=== PATIENT | female | born 1980 | race Caucasian/White ===

== ENCOUNTER 2022-07-01 08:30 | Inpatient (IN) | payer BC, OTHER ==
[2022-07-01] MEDS: ELECTROLYTE-148 SOLN 1,000 ML IV SCH (08:45)
[2022-07-01] MEDS ORDERED: CITRIC ACID/SODIUM CITRATE 30 ML UNIT-DOSE CUP PO ONE (09:22)
[2022-07-01 09:33] VITALS: BMI 32.9
[2022-07-01 09:35] LABS: BASO % 0.5 % (0-2.0); EOS % 1.8 % (0-4.5); HEMATOCRIT 38.7 % (32.4-45.2); HEMOGLOBIN 13.5 GM/dL (10.7-15.3); LYMPH % 17.5 % (8-40); MCH 31.4 pg (25.7-33.7); MCHC 34.9 g/dl (32.0-36.0); MEAN PLT VOLUME 9.2 fl (7.5-11.1); NEUT % 72.2 % (42.8-82.8); PLATELET COUNT 115 10^3/uL (134-434); WHITE BLOOD COUNT 7.2 K/mm3 (4.0-10.0)
[2022-07-01 09:50] LABS: POTASSIUM 3.7 mmol/L (3.5-5.1)
[2022-07-01 09:52] LABS: BLOOD UREA NITROGEN 7.8 mg/dL (7-18); CALCIUM 8.2 mg/dL (8.5-10.1)
[2022-07-01 09:53] LABS: ACTIVATED PTT 30.4 SECONDS (25.2-36.5); INR 0.96 (0.83-1.09); PROTHROMBIN TIME (PATIENT) 11.1 SEC (9.7-13.0)
[2022-07-01 09:56] LABS: CREATININE 0.5 mg/dL (0.55-1.3)
[2022-07-01] MEDS ORDERED: CITRIC ACID/SODIUM CITRATE 30 ML UNIT-DOSE CUP ONE (10:18)
[2022-07-01 10:47] LABS: HIV INTERPRETATION NEGATIVE (NEGATIVE)
[2022-07-01] MEDS ORDERED: morphine SULFATE (PF) 1 MG/2 ML SYRINGE ONE (10:49)
[2022-07-01] MEDS ORDERED: FENTANYL CITRATE/PF 50 MCG/ML VIAL ONE (10:49)
[2022-07-01 12:18] LABS: CORD HCO3 23.7 mmHg (20-29); CORD PCO2 48.1 mmHg (30-78); CORD pH 7.31 (7.14-7.44)
[2022-07-01 12:21] LABS: CORD HCO3 24.9 mmHg (20-29); CORD PCO2 60.2 mmHg (30-78); CORD pH 7.234 (7.14-7.44)
[2022-07-01] MEDS ORDERED: IBUPROFEN 600 MG TABLET (FP) PO PRN (12:21)
[2022-07-01] MEDS ORDERED: ACETAMINOPHEN 325 MG TABLET (FP) PO PRN (12:21)
[2022-07-01] MEDS ORDERED: METHYLERGONOVINE MALEATE 0.2 MG/1 ML AMP IM PRN (12:21)
[2022-07-01] MEDS ORDERED: OXYTOCIN 20 UNITS in 0.9% NS 20 UNIT/1,000 ML INFUS.BAG IV ONE (12:29)
[2022-07-01] MEDS ORDERED: morphine SULFATE/PF 1 MG/2 ML (2cc Syringe - QUVA) EP ONE (12:30)
[2022-07-01] MEDS ORDERED: ACETAMINOPHEN 1000 MG/100 ML BAG IVPB ONE (12:31)
[2022-07-01] MEDS ORDERED: PROMETHAZINE HCL 25 MG/1 ML VIAL IVPB PRN (12:32)
[2022-07-01] MEDS: OXYTOCIN 20 UNITS in 0.9% NS 20 UNIT/1,000 ML INFUS.BAG IV SCH ×2 (12:45→21:49)
[2022-07-01] MEDS ORDERED: ONDANSETRON 4 MG/2 ML VIAL ONE (13:13)
[2022-07-01] MEDS ORDERED: ceFAZolin SODIUM 1 GM VIAL ONE (13:13)
[2022-07-01] MEDS ORDERED: OXYTOCIN 10 UNITS/ML VIAL ONE (13:13)
[2022-07-01] MEDS ORDERED: KETOROLAC TROMETHAMINE 30 MG/1 ML VIAL ONE (13:13)
[2022-07-01] MEDS ORDERED: ACETAMINOPHEN INJECTION 100 ML IVPB ONE (14:05)
[2022-07-01] MEDS ORDERED: CEFAZOLIN SODIUM 2 GM VIAL IVPB SCH (18:00)
[2022-07-01] MEDS: CEFAZOLIN SODIUM 2 GM in DEXTROSE 5%-WATER 100 ML IVPB SCH (18:07)
[2022-07-02] MEDS ORDERED: oxyCODONE HCL 5 MG TABLET PO PRN ×2 (00:22)
[2022-07-02] MEDS: CEFAZOLIN SODIUM 2 GM in DEXTROSE 5%-WATER 100 ML IVPB SCH ×2 (01:28→11:08)
[2022-07-02] MEDS: ACETAMINOPHEN 1000 MG/100 ML BAG IVPB PRN ×2 (05:46→12:19)
[2022-07-02] MEDS: SIMETHICONE 80 MG TAB.CHEW (FP) PO PRN ×4 (05:48→22:09)
[2022-07-02 08:29] LABS: BASO % 0.4 % (0-2.0); HEMATOCRIT 36.1 % (32.4-45.2); HEMOGLOBIN 12.8 GM/dL (10.7-15.3); LYMPH % 14.2 % (8-40); MCH 31.8 pg (25.7-33.7); MCHC 35.4 g/dl (32.0-36.0); MEAN CELL VOLUME 89.8 fl (80-96); MEAN PLT VOLUME 9.6 fl (7.5-11.1); MONO % 6.4 % (3.8-10.2); PLATELET COUNT 101 10^3/uL (134-434); RBC 4.02 M/mm3 (3.60-5.2); WHITE BLOOD COUNT 8.2 K/mm3 (4.0-10.0)
[2022-07-02] MEDS: ENOXAPARIN NA (PORCINE) 40 MG/0.4 ML DISP.SYRIN SQ SCH (11:07)
[2022-07-02] MEDS ORDERED: BISACODYL 10 MG SUPP.RECT RC PRN (12:22)
[2022-07-02] MEDS ORDERED: ACETAMINOPHEN 1000 MG/100 ML BAG IVPB ONE (17:27)
[2022-07-02] MEDS: IBUPROFEN 600 MG TABLET (FP) PO SCH (22:09)
[2022-07-03] MEDS: IBUPROFEN 600 MG TABLET (FP) PO SCH ×4 (04:37→22:30)
[2022-07-03] MEDS: SIMETHICONE 80 MG TAB.CHEW (FP) PO PRN ×3 (08:12→22:30)
[2022-07-03] MEDS: ENOXAPARIN NA (PORCINE) 40 MG/0.4 ML DISP.SYRIN SQ SCH (10:42)
[2022-07-03] MEDS: OXYTOCIN 20 UNITS in 0.9% NS 20 UNIT/1,000 ML INFUS.BAG IV SCH (21:05)
[2022-07-03] MEDS: ELECTROLYTE-148 SOLN 1,000 ML IV SCH ×2 (21:05→21:06)
[2022-07-04] MEDS: IBUPROFEN 600 MG TABLET (FP) PO SCH ×2 (04:33→10:11)
[2022-07-04] MEDS: SIMETHICONE 80 MG TAB.CHEW (FP) PO PRN ×2 (04:33→10:11)
[2022-07-04 08:40] LABS: BASO % 0.4 % (0-2.0); EOS % 2.6 % (0-4.5); HEMOGLOBIN 12.8 GM/dL (10.7-15.3); LYMPH % 16.4 % (8-40); MCH 31.7 pg (25.7-33.7); MCHC 34.7 g/dl (32.0-36.0); MEAN CELL VOLUME 91.4 fl (80-96); MEAN PLT VOLUME 8.6 fl (7.5-11.1); MONO % 6.2 % (3.8-10.2); NEUT % 74.4 % (42.8-82.8); PLATELET COUNT 141 10^3/uL (134-434); RBC 4.05 M/mm3 (3.60-5.2); RDW 13.8 % (11.6-15.6); WHITE BLOOD COUNT 7.6 K/mm3 (4.0-10.0)
[2022-07-04 09:54] VITALS: BP 119/80; PULSE 62; RESP 17; TEMP 98
[2022-07-04] MEDS: ENOXAPARIN NA (PORCINE) 40 MG/0.4 ML DISP.SYRIN SQ SCH (10:11)
== END 2022-07-04 14:45 | disposition home or self-care (01) | DRG 788 ==
LOC: JLDR 08:30 → J3W 14:30
PROVIDERS: ADMIT Obstetrics & Gynecology; ATTEND Obstetrics & Gynecology
PROC: 10D00Z1 Extraction of Products of Conception, Low, Open Approach (ICD-10-PCS; principal; 2022-07-01)
DX: O34.211 Maternal care for low transverse scar from previous cesarean delivery (principal); N85.8 Other specified noninflammatory disorders of uterus; O48.0 Post-term pregnancy; O40.3XX0 Polyhydramnios, third trimester, not applicable or unspecified; O32.2XX0 Maternal care for transverse and oblique lie, not applicable or unspecified; Z3A.40 40 weeks gestation of pregnancy; Z37.0 Single live birth
CPT/HCPCS: 36415; 36600; 80048; 82803; 85025; 85610; 85730; 86780; 86850; 86900; 86901; 87389; 88307-TC; C9803-CS; U0003; U0005

== ENCOUNTER 2024-06-07 06:38 | Day surgery (SDC) | payer BC, OTHER ==
[2024-06-02 14:23] VITALS: BMI 26.5
[2024-06-07] MEDS ORDERED: PROPOFOL 20 ML ONE (07:30)
[2024-06-07] MEDS ORDERED: MIDAZOLAM HCL 2 MG/2 ML SINGLE DOSE VIAL ONE (07:30)
[2024-06-07] MEDS ORDERED: ROPIVACAINE HCL/PF 100 MG/20 ML VIAL ONE (07:48)
[2024-06-07] MEDS ORDERED: DEXAMETHASONE SOD PHOSPHATE 10 MG/1 ML VIAL ONE (07:48)
[2024-06-07] MEDS ORDERED: ACETAMINOPHEN INJECTION 100 ML ONE (07:49)
[2024-06-07] MEDS ORDERED: EPINEPHrine 1:1,000 1,000 MCG/ML ML ONE (07:59)
[2024-06-07] MEDS ORDERED: BUPIVACAINE HCL/PF 0.25% (2.5MG/ML) 10 ML VIAL ONE (07:59)
[2024-06-07] MEDS ORDERED: oxyCODONE HCL 5 MG TABLET PO PRN (08:35)
[2024-06-07] MEDS ORDERED: LACTATED RINGERS SOLUTION 1,000 ML IV SCH (08:45)
[2024-06-07] MEDS ORDERED: KETOROLAC TROMETHAMINE 30 MG/1 ML VIAL ONE (09:53)
[2024-06-07] MEDS ORDERED: LIDOCAINE HCL/PF 2% SDV 5ML VIAL ONE (09:53)
[2024-06-07] MEDS ORDERED: ONDANSETRON 4 MG/2 ML VIAL ONE ×2 (09:53→12:00)
[2024-06-07] MEDS ORDERED: VANCOMYCIN 1,000 MG VIAL (RESTRICTED TO ID ONLY) ONE (10:26)
[2024-06-07] MEDS ORDERED: HYDROmorphone HCL/PF 1 MG/ML VIAL ONE (10:30)
[2024-06-07] MEDS ORDERED: FENTANYL CITRATE/PF 50 MCG/ML VIAL ONE ×2 (12:01→12:18)
[2024-06-07] MEDS ORDERED: PROMETHAZINE HCL 25 MG/1 ML VIAL IVPB PRN (12:09)
[2024-06-07] MEDS: ONDANSETRON 4 MG/2 ML VIAL IVPUSH PRN (12:10)
[2024-06-07 13:06] VITALS: RESP 18; TEMP 97.3
[2024-06-07] MEDS: oxyCODONE HCL 5 MG TABLET PO PRN (14:05)
[2024-06-07] MEDS ORDERED: oxyCODONE HCL 5 MG TABLET ONE (14:06)
[2024-06-07 15:06] VITALS: BP 111/62; PULSE 71
== END 2024-06-07 15:14 | disposition home or self-care (01) ==
LOC: FASUSAT 06:38
PROVIDERS: ATTEND Orthopaedic Surgery Sports Medicine
PROC: 0MRP47Z Replacement of Left Knee Bursa and Ligament with Autologous Tissue Substitute, Percutaneous Endoscopic Approach (ICD-10-PCS; principal; 2024-06-07 10:25)
DX: S83.512A Sprain of anterior cruciate ligament of left knee, initial encounter (principal); S83.242A Other tear of medial meniscus, current injury, left knee, initial encounter; M65.962 Unspecified synovitis and tenosynovitis, left lower leg; X58.XXXA Exposure to other specified factors, initial encounter; Y93.9 Activity, unspecified; Y92.9 Unspecified place or not applicable
CPT/HCPCS: 29881; 29888; C1713; 73560-TC-LT-FY; 81025; 94760; J0131; J1100